=== PATIENT | male | born 1990 | race Caucasian/White ===

== ENCOUNTER 2021-02-07 19:57 | Emergency (ER) | payer OTHER ==
[~2021-02-07] VITALS: Ht 185.4 cm; Wt 72.6 kg
[2021-02-07 20:00] VITALS: BP 125/81
--- NOTE | 2021-02-07 20:00 | NUR ---
PT OFFLOADED TO LOBBY IN STABLE CONDITION TO A/W BED.
--- NOTE | 2021-02-07 21:18 | NUR ---
[facility] CALLED TO PICK PT UP. PATIENT LEFT WITHOUT BEING SEEN BY DR. GOMEZ. NO FURTHER CARE PROVIDED FOR PATIENT.
== END 2021-02-07 21:18 | disposition left against medical advice (07) ==
LOC: MED 19:57
DX: R53.1 Weakness (principal); Z53.21 Procedure and treatment not carried out due to patient leaving prior to being seen by health care provider